=== PATIENT | male | born 1960 | race Caucasian/White ===

== ENCOUNTER 2021-06-29 15:30 | Inpatient (IN) | payer MEDICARE, OTHER ==
[~2021-06-29] VITALS: Ht 165.1 cm; Wt 129.4 kg
--- NOTE | 2021-06-29 16:16 | PHYS DOC ---
Past History Past Medical History: Hypertension, TIA Additional Past Medical Histor: swelling legs, (ANETA ROB APRN) Past Surgical History: No Surgical History, Other (ANETA ROB APRN) Alcohol Use: None Drug Use: None (ANETA ROB APRN) General Adult HPI: HPI: Patient is a 60-year-old male that came to us today with complaint of lower extremity swelling and wounds. Patient states the last time he saw physician was over a year ago, he states that he has always had swelling in his left leg and over the past year his both of his legs have begun to swell. Patient states that he has noticed wounds on his lower extremities that been draining over the last couple of weeks he went to the urgent care today at [facility] and they referred him here to the emergency department for further management. Patient denies chest pain, shortness of air at rest and fever. Patient does state that when he walks any distance he has to stop and catch his breath. Patient states he is supposed to be on antihypertensive medications and a water pill he has not taken for over a year due to cost of the medication (ANETA ROB APRN) Review of Systems: Review of Systems: Constitutional: Denies fever or chills Eyes: Denies change in visual acuity HENT: Denies nasal congestion or sore throat Respiratory: Denies cough or shortness of breath Cardiovascular: Denies chest pain or edema GI: Denies abdominal pain, nausea, vomiting, bloody stools or diarrhea : Denies dysuria Musculoskeletal: Bilateral leg swelling Integument: Bilateral leg wounds that are draining Neurologic: Denies headache, focal weakness or sensory changes Endocrine: Denies polyuria or polydipsia Lymphatic: Denies swollen glands Psychiatric: Denies depression or anxiety (ANETA ROB APRN) Allergies: Allergies: Allergies Coded Allergies Type Severity Reaction Last Updated Verified No Known Drug Allergies 08/11/14 No (ANETA ROB APRN) Physical Exam: PE: Constitutional: Well developed, well nourished, no acute distress, non-toxic appearance, unkept [] HENT: Normocephalic, atraumatic, bilateral external ears normal, oropharynx moist, no oral exudates, nose normal. [] Eyes: PERRLA, EOMI, conjunctiva normal, no discharge. [] Neck: Normal range of motion, no tenderness, supple, no stridor. [] Cardiovascular:Heart rate regular rhythm, no murmur [] Lungs & Thorax: Bilateral breath sounds diminished in the bases Abdomen: Bowel sounds normal, soft, no tenderness, no masses, no pulsatile masses. [] Skin: Warm, dry, no erythema, no rash. [] Back: No tenderness, no CVA tenderness. [] Extremities: Bilateral leg swelling noted 4+ pitting 1+ pedal pulses noted cap refill less than 2 seconds skin is sloughing off red and angry right greater than left drainage noted on the right leg more so than the left. Drainage from bilateral legs is foul-smelling in nature and white with a green appearance as well Neurologic: Alert and oriented X 3, normal motor function, normal sensory function, no focal deficits noted. [] Psychologic: Affect normal, judgement normal, mood normal. [] (ANETA ROB APRN) Current Patient Data: Labs: Laboratory Tests Test 06/29/21 16:15 White Blood Count 9.3 x10^3/uL Red Blood Count 4.01 x10^6/uL Hemoglobin 10.7 g/dL Hematocrit 33.4 % Mean Corpuscular Volume 83 fL Mean Corpuscular Hemoglobin 27 pg Mean Corpuscular Hemoglobin Concent 32 g/dL Red Cell Distribution Width 15.1 % Platelet Count 453 x10^3/uL Neutrophils (%) (Auto) 73 % Lymphocytes (%) (Auto) 18 % Monocytes (%) (Auto) 5 % Eosinophils (%) (Auto) 3 % Basophils (%) (Auto) 1 % Neutrophils # (Auto) 6.8 x10^3uL Lymphocytes # (Auto) 1.6 x10^3/uL Monocytes # (Auto) 0.5 x10^3/uL Eosinophils # (Auto) 0.3 x10^3/uL Basophils # (Auto) 0.1 x10^3/uL Sodium Level 138 mmol/L Potassium Level 3.7 mmol/L Chloride Level 103 mmol/L Carbon Dioxide Level 25 mmol/L Anion Gap 10 Blood Urea Nitrogen 16 mg/dL Creatinine 1.2 mg/dL Estimated GFR (Cockcroft-Gault) 62.2 BUN/Creatinine Ratio 13 Glucose Level 85 mg/dL Lactic Acid Level 1.2 mmol/L Calcium Level 8.8 mg/dL Total Bilirubin 0.4 mg/dL Aspartate Amino Transf (AST/SGOT) 20 U/L Alanine Aminotransferase (ALT/SGPT) 21 U/L Alkaline Phosphatase 68 U/L Troponin I High Sensitivity 4 ng/L IF-Kme-M-Type Natriuretic Peptide 90 pg/mL Total Protein 8.2 g/dL Albumin 2.8 g/dL Albumin/Globulin Ratio 0.5 SARS-CoV-2 Antigen (Rapid) Negative Vital Signs: Vital Signs Date Time Temp Pulse Resp B/P (MAP) Pulse Ox O2 Delivery O2 Flow Rate FiO2 06/29/21 20:00 98.6 98 19 151/71 (97) 98 Room Air 06/29/21 18:52 92 20 125/71 (89) 100 Room Air 06/29/21 18:22 86 20 134/65 (88) 99 Room Air 06/29/21 17:22 90 18 129/69 (89) 99 Room Air 06/29/21 16:53 83 20 127/74 (91) 100 Room Air 06/29/21 16:26 88 18 132/46 (74) 100 Room Air 06/29/21 15:30 98.2 109 24 155/101 (119) 99 Room Air Vital Signs Date Time Temp Pulse Resp B/P (MAP) Pulse Ox O2 Delivery O2 Flow Rate FiO2 06/29/21 15:30 98.2 109 24 155/101 (119) 99 Room Air (ANETA ROB PRODUCT DEVELOPMENT CARPENTER) EKG: EKG: EKG done at [address] Alfaro at 1646 no STEMI interpretation is a sinus rhythm with no ectopy rate of 85 with a OK interval 158 ms with a QT interval of 376 ms [] (ANETA ROB PRODUCT DEVELOPMENT CARPENTER) Radiology/Procedures: Radiology/Procedures: REASON: SOA PROCEDURE: CHEST AP ONLY XR CHEST 1V CLINICAL INDICATIONS: Shortness of air COMPARISON: October 2011. Findings: No acute lung infiltrate or pleural effusion or pulmonary edema or lung mass or pneumothorax is seen. The heart size, pulmonary vasculature, mediastinum and both davida are stable. IMPRESSION: No acute radiographic abnormality is seen. Electronically signed by: Horacio Barber MD (06/29/2021 4:43 PM) [id number] [] (ANETA ROB APRN) Heart Score: C/O Chest Pain: N/A (ANETA ROB APRN) Course & Med Decision Making: Course & Med Decision Making Pertinent Labs and Imaging studies reviewed. (See chart for details) 184 reviewed labs and radiological exams, spoke to Dr. Crandall regarding admission he is agreeable for admission. Will admit inpatient (ANETA ROB APRN) Course & Med Decision Making I was the Attending physician on the above date of service of this patient. This patient was evaluated, examined, treated, and dispositioned from the emergency department by the mid-level practitioner. I was asked for assistance and reviewed case. I repeated certain aspects of history and physical exam. Patient with poor overall hygiene and health literacy with bilateral lower extremity swelling with mild skin breakdown and cellulitis. No indication for immediate surgical consultation but patient will require admission for IV antibiotics and wound care consultation at minimum. Electronically signed, Patricio Barcenas DO (PATRICIO BARCENAS DO) Jarred Disclaimer: Jarred Disclaimer: This electronic medical record was generated, in whole or in part, using a voice recognition dictation system. (ANETA ROB APRN) Departure Departure: Impression: Primary Impression: Venous stasis dermatitis of both lower extremities Disposition: ADMITTED INPATIENT Admitting Physician: Ministerio Crandall (ANETA ROB APRN) Condition: STABLE Referrals: PCP,NO (PCP) ANETA ROB APRN Jun 29, 2021 16:16 PATRICIO BARCENAS DO Jun 30, 2021 06:25
--- NOTE | 2021-06-29 16:46 | RAD ---
XR CHEST 1V CLINICAL INDICATIONS: Shortness of air COMPARISON: October 2011. Findings: No acute lung infiltrate or pleural effusion or pulmonary edema or lung mass or pneumothora x is seen. The heart size, pulmonary vasculature, mediastinum and both davida are stable. IMPRESSION: No acute radiographic abnormality is seen. Electronically signed by: Horacio Barber MD (06/29/2021 4:43 PM) [id number]
[2021-06-29 17:03] LABS: BASO # 0.1 x10^3/uL (0.0-0.2); BASO % 1 % (0-3); EOS # 0.3 x10^3/uL (0.0-0.7); EOS % 3 % (0-3); HEMATOCRIT 33.4 % (39.0-53.0); HEMOGLOBIN 10.7 g/dL (13.0-17.5); LYMPH # 1.6 x10^3/uL (1.0-4.8); LYMPH % 18 % (24-48); MEAN CORPUSCULAR HEMOGLOBIN 27 pg (25-35); MEAN CORPUSCULAR HGB CONC 32 g/dL (31-37); MEAN CORPUSCULAR VOLUME 83 fL (79-100); MONO # 0.5 x10^3/uL (0.0-1.1); MONO % 5 % (0-9); NEUT # 6.8 x10^3uL (1.8-7.7); NEUT % 73 % (31-73); PLATELET COUNT 453 x10^3/uL (140-400); RED BLOOD COUNT 4.01 x10^6/uL (4.30-5.70); RED CELL DISTRIBUTION WIDTH 15.1 % (11.5-14.5); WHITE BLOOD COUNT 9.3 x10^3/uL (4.0-11.0)
[2021-06-29 17:19] LABS: CALCIUM 8.8 mg/dL (8.5-10.1); CREATININE 1.2 mg/dL (0.7-1.3); GFR 62.2; POTASSIUM 3.7 mmol/L (3.5-5.1)
[2021-06-29 17:32] LABS: ALBUMIN 2.8 g/dL (3.4-5.0); ALBUMIN/GLOBULIN RATIO 0.5 (1.0-1.7); TOTAL BILIRUBIN 0.4 mg/dL (0.2-1.0); TOTAL PROTEIN 8.2 g/dL (6.4-8.2)
--- NOTE | 2021-06-29 18:57 | EKG ---
[address] [address] Test Date: 2021-06-29 Test Time: 16:43:32 Pat Name: LULY ALFONSO Department: Room: Gender: M Energy Consultant: JORDAN : 1960 Requested By: ANETA ROB Order Number: [id number] Reading MD: Sage Us MD Measurements Intervals [place] Rate: 85 P: 36 OK: 158 QRS: 9 QRSD: 88 T: 8 QT: 378 QTc: 450 Interpretive Statements SINUS RHYTHM Electronically Signed On 07-06-2021 11:58:18 PAN GREASER by Sage Us MD
[2021-06-29 20:00] VITALS: BP 151/71
[2021-06-29] MEDS ORDERED: VANCOMYCIN PER PHARMACY MC PRN (20:15)
--- NOTE | 2021-06-29 20:48 | NUR ---
Pharmacy Vancomycin Dosing Note S:Consulted to monitor and dose vancomycin started 06/29/21. O:LULY ALFONSO is a 60 year old M with Cellulitis, . Height: 5 feet, 5 inches Weight: 134.2 kg [place] Body Weight: 61.50 Adjusted Body Weight: 90.58 Dosing Weight: Actual Other Antibiotics: None LABS: Last BUN: 16 Last Creatinine: 1.2 Creatinine Clearance: 85.97 Last WBC: 9.3 Vancomycin Dosing: Loading Dose: 2000 mg x1 Dosing Weight: Actual Target Trough: A: Based on: Actual weight, renal function, and indication P: 1. Begin Vancomycin 2000 mg IV q12h 2. Follow up Trough level on 07/01/21 at 0830 3. Pharmacy will continue to monitor, follow and adjust therapy as needed. RAMESH HICKMAN, 06/29/21 2048
[2021-06-29] MEDS ORDERED: VANCOMYCIN 1 GM in IV NORMAL SALINE 250ML 250 ML IV SCH (21:00)
[2021-06-29] MEDS: FUROSEMIDE 100 MG/10 ML VIAL IVP SCH (22:27)
[2021-06-29] MEDS: VANCOMYCIN 2 GM in IV NORMAL SALINE 500ML 500 ML IV SCH (22:27)
[2021-06-29] MEDS ORDERED: NO HOME MEDICATIONS (23:01)
--- NOTE | 2021-06-30 01:11 | NUR ---
The patient, LULY ALFONSO, 60 y/o, M admitted by ALISA NEWELL MD, was given written information regarding hospital policies, unit procedures and contact persons. Valuables were checked and vital signs obtained. Reviewed with PT his PMH, PSH, SH, FH and medications. PT states he takes no medications.
[2021-06-30 06:01] VITALS: BP 123/58
[2021-06-30 06:19] LABS: CALCIUM 8.2 mg/dL (8.5-10.1); CREATININE 1.3 mg/dL (0.7-1.3); GFR 56.7; POTASSIUM 3.6 mmol/L (3.5-5.1)
[2021-06-30] MEDS: VANCOMYCIN 2 GM in IV NORMAL SALINE 500ML 500 ML IV SCH ×2 (09:06→20:35)
[2021-06-30] MEDS: FUROSEMIDE 100 MG/10 ML VIAL IVP SCH ×2 (09:06→15:37)
--- NOTE | 2021-06-30 10:39 | HP ---
DATE OF SERVICE: 06/30/2021 ADMIT DATE: 06/29/2021 ATTENDING PHYSICIAN: Ministerio Crandall MD CHIEF COMPLAINT: Leg swelling. HISTORY OF PRESENT ILLNESS: The patient is a 60-year-old gentleman with limited capability. He has significant swelling of both the lower extremities consistent with stasis dermatitis. He has no insight into fluid restriction. He states that several years ago, he was prescribed potassium, and diuretics. He could not afford his medication and evidently, he stopped taking it. It has been 2-3 years now. In the ED, he had 4+ pitting edema of the lower extremities extending all the way up to his thighs. There are open sores, serous drainage, excoriations and horrible hygiene. He was admitted then with a symptomatic cellulitis related to stasis dermatitis. PAST MEDICAL HISTORY: Significant for hypertension and TIAs. He is not on any prescription meds. He does not see any doctors. He is very noncompliant. PAST SURGICAL HISTORY: None. SOCIAL HISTORY: He is a smoker. He denies any alcohol use. FAMILY HISTORY: Father of heart disease, age 74. Mom of stroke at age 72. He is single. He is on disability, lives on social security. He is currently staying with a friend. Previously, he had been staying in a ____ motel. REVIEW OF SYSTEMS: Significant for the leg swelling. No recent travel trauma. He denies any COVID exposure. He has not been vaccinated. All other systems were reviewed and turned to be negative. PHYSICAL EXAMINATION: GENERAL: When I saw him, this is an obese gentleman with very little insight. VITAL SIGNS: Initial vital signs showed a blood pressure of 151/71. He was afebrile, oxygen saturation 98% on room air, pulse is 90 and regular. HEENT: Head is without trauma. Pupils are reactive. Sclerae are nonicteric. The oropharynx is clear. NECK: Supple. No bruits identified. LUNGS: Clear to auscultation. CARDIOVASCULAR: Showed regular heart tones. ABDOMEN: Obese, protuberant. No organomegaly. EXTREMITIES: Showed significant pedal edema extending all the way up to his thighs. There is stasis dermatitis and large areas of excoriation, hemosiderin deposit and open sores that is weeping. PERTINENT LABORATORY STUDIES: Admission hemoglobin is 10.7 g/dL with a white count of 9300. Sodium was 138 mEq, potassium 3.7, creatinine is 1.2 mg/dL. Transaminases are normal. Troponin was nonischemic. ASSESSMENT: 1. A 60-year-old gentleman with stasis dermatitis, both the lower extremities. 2. Secondary cellulitis. 3. Morbid obesity. 4. Noncompliance of meds. 5. Mild chronic obstructive pulmonary disease. PLAN: 1. Admit to the inpatient unit. 2. Diuretics. Lasix has been ordered 80 mg twice a day. 3. Serial chemistries. 4. Daily weights. 5. 1200 mL fluid restriction. 6. Vancomycin as ordered for infection. 7. He tells me he needs to be out of hospital By 07/02/2021, I will convey this message to Dr. Freire who takes over the service tomorrow. ANDREW/EDDIE/LUKE DR: ANDREW/jess TID: [id number] CC: PATTI FREIRE MD
[2021-06-30 11:02] VITALS: BP 121/72
[2021-06-30 15:06] VITALS: BP 121/73
[2021-06-30 20:01] VITALS: BP 149/69
[2021-06-30 23:47] VITALS: BP 135/65
[2021-07-01 06:11] VITALS: BP 130/70
--- NOTE | 2021-07-01 07:00 | NUR ---
Wound/Ostomy Care Wound Type/Assessment: Wound care consult for wounds to BLE. Pt has widespread stasis dermatitis that is crusty and dry. Cleansed, assessed, and redressed wounds. Treatment Recommendations/Plan: Cleanse with lotion soap and warm water, apply xeroform, and secure with kerlix. Apply medigrip size G from toes to knees. Change every day. Education provided: WC POC and PU prevention. Pt verbalized understanding of teaching. Offloading surface/device: float heels and encourage turning, pt is a self turn Recommended Referrals/Tests: wound benefit from arterial studies. Discharge Recommendations for dressings: see above
[2021-07-01] MEDS: FUROSEMIDE 100 MG/10 ML VIAL IVP SCH (08:13)
[2021-07-01] MEDS: VANCOMYCIN 2 GM in IV NORMAL SALINE 500ML 500 ML IV SCH (09:00)
[2021-07-01 09:12] LABS: VANC TR 31.9 mcg/mL (10.0-20.0)
--- NOTE | 2021-07-01 09:15 | NUR ---
Nursing Note Vancomycin trough level high, called and verified with pharmacy and was told to hold the next dosage. PT in bed, alert and oriented,morning medications administered. PT verbalized no other needs.
[2021-07-01 10:29] VITALS: BP 119/74
[2021-07-01 15:19] VITALS: BP 116/66
[2021-07-01 16:03] LABS: CALCIUM 8.5 mg/dL (8.5-10.1); CREATININE 1.6 mg/dL (0.7-1.3); GFR 44.6; POTASSIUM 3.3 mmol/L (3.5-5.1)
--- NOTE | 2021-07-01 17:26 | NUR ---
Nursing note PT in bed, IV medication stopped per doctors orders.
[2021-07-01 19:00] VITALS: BP 114/66
--- NOTE | 2021-07-01 20:17 | PN ---
DATE: 07/01/2021 SUBJECTIVE: The patient is resting, slightly propped up in bed, no apparent distress. On questioning him, he denied any complaint. He apparently has chronic venous stasis ulcers for years and apparently the swelling and erythema has worsened such that he came yesterday to the Emergency Room for further evaluation. He was started on IV antibiotic in the form of vancomycin as well as IV Lasix. PHYSICAL EXAMINATION: GENERAL: When I saw him this afternoon, he looked well and was clearly in no apparent respiratory distress. He was pale, but no jaundice, cyanosis or thyromegaly. No jugular venous distention, but mild bilateral lower extremity edema and chronic venous stasis. VITAL SIGNS: His heart rate was 85, blood pressure was 119/74, temperature was 97.7, respiratory rate was 18 and oxygen saturation was 92%. The rest of clinical exam stable. LABORATORY DATA: As of yesterday, his most recent lab work showed a white cell count 9300, hemoglobin 11, hematocrit 33, MCV 83 and platelet count of [id number] with normal manual differential. His chemistry showed a serum sodium of 138, potassium 3.7, chloride 103, bicarbonate 25, anion gap of 10, BUN of 16, creatinine 1.2. Estimated GFR was 62 mL per minute. His glucose was 85, calcium was 8.8. Total bilirubin, AST, ALT, alkaline phosphatase were normal. Beta natriuretic peptide was 90, total protein was 8.2, albumin was 2.8. His toxic screen showed the vancomycin trough level to be 31.9. His coronavirus PCR was negative. His chest x-ray showed no acute radiographic abnormality seen. ASSESSMENT: 1. Bilateral lower extremity cellulitis superimposed on chronic venous stasis ulcer. 2. Morbid obesity. 3. Questionable chronic obstructive pulmonary disease versus obstructive sleep apnea. PLAN: To continue with IV antibiotic for today. He is planning to leave the hospital tomorrow, so I will probably discharge him on oral clindamycin. SARAH/AZAEL DR: Isabelle TID: [id number]
[2021-07-02 05:00] VITALS: BP 114/66
--- NOTE | 2021-07-02 08:15 | RAD ---
EXAMINATION: US BILATERAL LOWEREXTREMITY VENOUS DOPPLER (LOWER EXTREMITY VENOUS ULTRASOUND) CLINICAL HISTORY: Cellulitis and edema on both lower extremities TECHNIQUE: Sonographic grayscale images obtained of the bilateral lower extremity deep venous systems with color flow Doppler, compression, and augmentation techniques as indicated. Images obtained and stored in a permanent archive. COMPARISON: None FINDINGS: RIGHT: No evidence of absent flow or incompressibility within the common femoral vein, femoral vein, or popl iteal vein. Upper posterior tibial vein appears patent on limited evaluation. Mid to lower posterior tibial vein and peroneal vein not visualized due to overlying dressings on the lower leg. LEFT: No evidence of absent flow or incompressibility within the common femoral vein, femoral vein, or popl iteal vein. Upper posterior tibial vein appears patent on limited evaluation. Mid to lower posterior tibial vein and peroneal vein not visualized due to overlying dressings on the lower leg. IMPRESSION: No evidence of bilateral lower extremity DVT. Limited evaluation of the calf veins as described. Electronically signed by: Reilly Siegel DO (07/02/2021 8:12 AM) [id number]
--- NOTE | 2021-07-02 10:20 | NUR ---
Nursing note: Patient alert and oriented x 4, sitting on bed when seen by RN at 0730. Patient stated that he wanted to leave the hospital against medical advice. Dr. Acosta was notified. Patient was informed of possible consequence of his decision. Form signed, patient's tobacco and cigars returned to him. IV line and tele box removed. Patient walked out of the unit at 10:20.
[2021-07-02] MEDS ORDERED: VANCOMYCIN 2 GM in IV NORMAL SALINE 500ML 500 ML IV SCH (12:00)
== END 2021-07-02 10:20 | disposition left against medical advice (07) | DRG 603 ==
LOC: ER 15:30 → 1 SOUTH 18:48
PROVIDERS: ADMIT Hospitalist; ATTEND Hospitalist
DX: L03.116 Cellulitis of left lower limb (principal); L97.909 Non-pressure chronic ulcer of unspecified part of unspecified lower leg with unspecified severity; Z68.42 Body mass index [BMI] 45.0-49.9, adult; E66.01 Morbid (severe) obesity due to excess calories; F17.200 Nicotine dependence, unspecified, uncomplicated; I10 Essential (primary) hypertension; I83.009 Varicose veins of unspecified lower extremity with ulcer of unspecified site; I87.2 Venous insufficiency (chronic) (peripheral); J44.9 Chronic obstructive pulmonary disease, unspecified; L03.115 Cellulitis of right lower limb; G47.33 Obstructive sleep apnea (adult) (pediatric); Z82.3 Family history of stroke; Z82.49 Family history of ischemic heart disease and other diseases of the circulatory system; Z86.73 Personal history of transient ischemic attack (TIA), and cerebral infarction without residual deficits; Z91.19 Patient's noncompliance with other medical treatment and regimen; Z20.822 Contact with and (suspected) exposure to COVID-19; Z53.29 Procedure and treatment not carried out because of patient's decision for other reasons
CPT/HCPCS: 36415; 71045; 80048; 80053; 80202; 83605; 83880; 84484; 85025; 87040; 87426; 93005; 93970; J3370; J7040; U0003; 99285-25